=== PATIENT | male | born 1965 | race Caucasian/White ===

== ENCOUNTER → 2018-06-11 | Outpatient (CLI) | payer BC ==
--- NOTE | 2018-06-11 07:41 | US ---
EXAMINATION TYPE: US kidneys/renal and bladder DATE OF EXAM: 06/11/2018 COMPARISON: CT from 2011 CLINICAL HISTORY: N17.9 Acute injury of kidney. EXAM MEASUREMENTS: Right Kidney: 10.7 x 5.1 x 5.5 cm Left Kidney: 10.6 x 6.0 x 5.5 cm Technically difficult study due to patient body habitus and midline bowel gas. Right Kidney: Simple appearing cyst measures 1.4 x 1.1 x 1.4 cm Left Kidney: No hydronephrosis or masses seen Bladder: wnl Bilateral Jets seen: Yes No suspicious perinephric fluid collections are evident. Color-flow sonography demonstrates color lori w in the bilateral kidneys. IMPRESSION: Right renal cyst.
== END | disposition home or self-care (01) ==
LOC: RADUSWWP 06:58
PROVIDERS: ATTEND Nurse Practitioner Family
DX: N28.1 Cyst of kidney, acquired (principal); N17.9 Acute kidney failure, unspecified
CPT/HCPCS: 76770

== ENCOUNTER 2019-01-24 10:37 | Emergency (ER) | payer OTHER, BC ==
[2019-01-24 11:00] VITALS: BP 153/77; PULSE 82; RESP 16; TEMP 99
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
== END 2019-01-24 13:47 | disposition home or self-care (01) ==
LOC: EC 10:37
DX: M54.5 Low back pain (principal); M48.061 Spinal stenosis, lumbar region without neurogenic claudication; N20.0 Calculus of kidney; E11.9 Type 2 diabetes mellitus without complications; I10 Essential (primary) hypertension; Z79.84 Long term (current) use of oral hypoglycemic drugs; Z79.899 Other long term (current) drug therapy; V89.2XXA Person injured in unspecified motor-vehicle accident, traffic, initial encounter; Y92.410 Unspecified street and highway as the place of occurrence of the external cause
CPT/HCPCS: 72131; 99284

== ENCOUNTER → 2019-02-24 | Outpatient (CLI) | payer BC ==
--- NOTE | 2019-02-24 09:59 | XR ---
EXAMINATION TYPE: XR KUB DATE OF EXAM: 02/24/2019 9:10 AM CLINICAL HISTORY: Left-sided kidney stones. TECHNIQUE: Two supine KUB images of the abdomen are obtained. COMPARISON: Abdominal x-ray and CT June 14, 2012. CT lumbar spine January 24, 2019 FINDINGS: The 4 mm calculus on recent CT upper pole level left kidney is less well-seen likely still present on plain film at superior L2 level. Exam suboptimal due to body habitus and overlying fecal m aterial. Overall nonobstructive bowel gas pattern. Scattered pelvic phleboliths are noted. IMPRESSION: As above.
== END | disposition home or self-care (01) ==
LOC: RADXRMAIN 08:59
PROVIDERS: ATTEND Urology
DX: N20.0 Calculus of kidney (principal)
CPT/HCPCS: 74018

== ENCOUNTER → 2021-07-08 | Outpatient (CLI) | payer BC ==
--- NOTE | 2021-07-08 10:48 | US ---
EXAMINATION TYPE: US venous doppler duplex LE DATE OF EXAM: 07/08/2021 10:30 AM COMPARISON: NONE CLINICAL HISTORY: R60.0 LOCALIZED EDEMA. Bilateral foot swelling x 6 months SIDE PERFORMED: Bilateral TECHNIQUE: The lower extremity deep venous system is examined utilizing real time linear array sonog nestor with graded compression, doppler sonography and color-flow sonography. VESSELS IMAGED: Common Femoral Vein Deep Femoral Vein Greater Saphenous Vein * Femoral Vein Popliteal Vein Small Saphenous Vein * Proximal Calf Veins (* superficial vessels) Right Leg: Appears negative for DVT Left Leg: Appears negative for DVT Grayscale, color doppler, spectral doppler imaging performed of the deep veins of the bilateral lower extremities. There is normal flow, compressibility, vascular waveforms. IMPRESSION: No ultrasound evidence for acute DVT in either lower extremity.
== END ==
LOC: RADUSWWP 10:07
PROVIDERS: ATTEND Family Medicine
DX: R60.0 Localized edema (principal)
CPT/HCPCS: 93970

== ENCOUNTER 2022-01-08 08:02 | Emergency (ER) | payer BC, OTHER ==
[2022-01-08 08:12] VITALS: TEMP 97.6
--- NOTE | 2022-01-08 08:30 | ED ---
General Adult HPI - General Chief complaint: Shortness of Breath Stated complaint: SOB Time Seen by Provider: 01/08/22 08:20 Source: patient, RN notes reviewed, old records reviewed Mode of arrival: ambulatory Limitations: no limitations - History of Present Illness Initial comments: 56-year-old male presents to the emergency room with complaints of shortness of breath for 1 month with bilateral lower extremity swelling for 6 months. He states he does sleep with more than 2 pillows at night. Does have an occasional cough. Denies any fevers. History of diabetes and hypertension. He did see his primary care doctor a month ago and was told that he is prediabetic but does have a normal A1c at this time. -: month(s) (1) Severity scale (1-10): 0 Consistency: constant Improves with: none Worsens with: other (exertion) Associated Symptoms: chest pain, cough, shortness of breath, other (blle sw elling) Treatments Prior to Arrival: none - Related Data Home Medications Medication Instructions Recorded Confirmed lisinopriL 40 mg PO DAILY 01/24/19 01/08/22 Albuterol Inhaler [Ventolin Hfa 2 puff INHALATION RT-Q6H PRN 01/08/22 01/08/22 Inhaler] Ergocalciferol [Vitamin D2 (1250 1,250 mcg PO WE 01/08/22 01/08/22 Mcg = 12913 Iu)] Fluticasone Nasal [place] [Flonase 1 spray EA NOSTRIL BID 01/08/22 01/08/22 Nasal [place]] guaiFENesin [Mucinex] 600 mg PO Q12H PRN 01/08/22 01/08/22 metOLazone [Zaroxolyn] 5 mg PO DAILY PRN 01/08/22 01/08/22 Allergies Allergy/AdvReac Type Severity Reaction Status Date / Time No Known Allergies Allergy Verified 01/08/22 10:38 Review of Systems ROS Statement: Those systems with pertinent positive or pertinent negative responses have been documented in the HPI. ROS Other: All systems not noted in ROS Statement are negative. Past Medical History Past Medical History: Diabetes Mellitus, Hypertension History of Any Multi-Drug Resistant Organisms: None Reported Past Surgical History: No Surgical Hx Reported Past Psychological History: No Psychological Hx Reported Smoking Status: Never smoker Past Alcohol Use History: Rare Past Drug Use History: None Reported General Exam Limitations: no limitations General appearance: alert, in no apparent distress Head exam: Present: atraumatic, normocephalic Eye exam: Present: normal appearance. Absent: scleral icterus, conjunctival injection, periorbital swelling, periorbital tenderness ENT exam: Present: normal exam, normal oropharynx, mucous membranes moist Neck exam: Present: normal inspection, full ROM. Absent: tenderness, meningismus, lymphadenopathy Respiratory exam: Present: normal lung sounds bilaterally. Absent: respiratory distress, accessory muscle use Cardiovascular Exam: Present: regular rate, normal rhythm GI/Abdominal exam: Present: soft. Absent: tenderness Extremities exam: Present: normal capillary refill, other (Bilateral lower extremity swelling, nonpitting, hyperpigmentation). Absent: tenderness, calf tenderness Back exam: Present: normal inspection. Absent: tenderness, CVA tenderness (R), CVA tenderness (L), rash noted Neurological exam: Present: alert, oriented X3, normal gait Psychiatric exam: Present: normal affect, normal mood Skin exam: Present: warm, dry. Absent: cyanosis, diaphoretic, petechiae, pallor Course Vital Signs 01/08/22 01/08/22 01/08/22 08:06 08:43 08:45 Temperature 97.6 F Pulse Rate 91 76 Respiratory 24 22 18 Rate Blood Pressure 154/92 O2 Sat by Pulse 90 L 96 Oximetry 01/08/22 01/08/22 01/08/22 10:26 10:28 11:24 Temperature Pulse Rate 85 81 Respiratory 18 18 Rate Blood Pressure 157/90 138/88 O2 Sat by Pulse 85 L 95 96 Oximetry Medical Decision Making - Medical Decision Making Patient states leg swelling has been ongoing for over 6 months. He has been prescribed a CPAP machine for sleep apnea which he states has difficulty using as he tosses and turns throughout the night. Chest x-ray is negative for any acute pulmonary disease. No evidence of infiltrate or atelectasis. Troponin is 0.033. BUN 29, creatinine 1.70, there are no old labs to compare. Patient states that his doctor did tell him his kidney function is elevated and is likely related to his hypertension. He did last see Dr. Campos 2 months ago. BNP 598, EKG shows sinus rhythm with no ST elevation. Case discussed with Dr. Ayala. Due to the chronicity of the patient's complaints and no acute findings, patient will be discharged home to follow up with his primary care doctor. I did direct him to discuss his elevated BUN and creatinine levels in addition to sleep apnea with his doctor. He is agreeable to this plan and care. Vital signs are stable at discharge. Case discussed with Dr. Ayala. - Lab Data Result diagrams: 01/08/22 08:35 01/08/22 08:35 Lab Results 01/08/22 01/08/22 01/08/22 Range/Units 08:18 08:35 08:35 WBC 7.8 (3.8-10.6) k/uL RBC 5.23 (4.30-5.90) m/uL Hgb 16.0 (13.0-17.5) gm/dL Hct 51.0 (39.0-53.0) % MCV 97.6 (80.0-100.0) fL MCH 30.7 (25.0-35.0) pg MCHC 31.4 (31.0-37.0) g/dL RDW 16.2 H (11.5-15.5) % Plt Count 216 (150-450) k/uL MPV 8.0 Neutrophils % 75 % Lymphocytes % 15 % Monocytes % 6 % Eosinophils % 2 % Basophils % 0 % Neutrophils # 5.8 (1.3-7.7) k/uL Lymphocytes # 1.1 (1.0-4.8) k/uL Monocytes # 0.4 (0-1.0) k/uL Eosinophils # 0.2 (0-0.7) k/uL Basophils # 0.0 (0-0.2) k/uL Hypochromasia Moderate Anisocytosis Slight Macrocytosis Slight PT 10.0 (9.0-12.0) sec INR 0.9 (<1.2) APTT 23.9 (22.0-30.0) sec Sodium (137-145) mmol/L Potassium (3.5-5.1) mmol/L Chloride (98-107) mmol/L Carbon Dioxide (22-30) mmol/L Anion Gap mmol/L BUN (9-20) mg/dL Creatinine (0.66-1.25) mg/dL Est GFR (CKD-EPI)AfAm (>60 ml/min/1.73 sqM) Est GFR (CKD-EPI)NonAf (>60 ml/min/1.73 sqM) Glucose (74-99) mg/dL Plasma Lactic Acid Tani (0.7-2.0) mmol/L Calcium (8.4-10.2) mg/dL Magnesium (1.6-2.3) mg/dL Total Bilirubin (0.2-1.3) mg/dL AST (17-59) U/L ALT (4-49) U/L Alkaline Phosphatase (38-126) U/L Troponin I (0.000-0.034) ng/mL NT-Pro-B Natriuret Pep 598 pg/mL Total Protein (6.3-8.2) g/dL Albumin (3.5-5.0) g/dL 01/08/22 01/08/22 01/08/22 Range/Units 08:35 08:35 08:35 WBC (3.8-10.6) k/uL RBC (4.30-5.90) m/uL Hgb (13.0-17.5) gm/dL Hct (39.0-53.0) % MCV (80.0-100.0) fL MCH (25.0-35.0) pg MCHC (31.0-37.0) g/dL RDW (11.5-15.5) % Plt Count (150-450) k/uL MPV Neutrophils % % Lymphocytes % % Monocytes % % Eosinophils % % Basophils % % Neutrophils # (1.3-7.7) k/uL Lymphocytes # (1.0-4.8) k/uL Monocytes # (0-1.0) k/uL Eosinophils # (0-0.7) k/uL Basophils # (0-0.2) k/uL Hypochromasia Anisocytosis Macrocytosis PT (9.0-12.0) sec INR (<1.2) APTT (22.0-30.0) sec Sodium 139 (137-145) mmol/L Potassium 4.5 (3.5-5.1) mmol/L Chloride 101 (98-107) mmol/L Carbon Dioxide 33 H (22-30) mmol/L Anion Gap 5 mmol/L BUN 29 H (9-20) mg/dL Creatinine 1.70 H (0.66-1.25) mg/dL Est GFR (CKD-EPI)AfAm 52 (>60 ml/min/1.73 sqM) Est GFR (CKD-EPI)NonAf 45 (>60 ml/min/1.73 sqM) Glucose 140 H (74-99) mg/dL Plasma Lactic Acid Tani 1.2 (0.7-2.0) mmol/L Calcium 9.0 (8.4-10.2) mg/dL Magnesium 1.7 (1.6-2.3) mg/dL Total Bilirubin 0.8 (0.2-1.3) mg/dL AST 59 (17-59) U/L ALT 53 H (4-49) U/L Alkaline Phosphatase 67 (38-126) U/L Troponin I 0.033 (0.000-0.034) ng/mL NT-Pro-B Natriuret Pep pg/mL Total Protein 6.7 (6.3-8.2) g/dL Albumin 3.7 (3.5-5.0) g/dL Disposition Clinical Impression: Shortness of breath, Sleep apnea, Elevated serum creatinine Disposition: HOME SELF-CARE Condition: Good Instructions (If sedation given, give patient instructions): Shortness of Breath (ED) Additional Instructions: Follow-up with the primary care doctor this week. Discuss with him your elevated kidney function tests in addition to your continued shortness of breath. Wear your CPAP machine for sleep apnea. If you are having trouble tolerating your CPAP please discuss this with the primary care doctor as well. Return to the emergency room with any new or concerning symptoms including chest pain or worsening difficulty in breathing. Is patient prescribed a controlled substance at d/c from ED?: No Referrals: None,Stated [Primary Care Provider] - 1-2 days Markie Abarca MD [REFERRING] - 1-2 days Time of Disposition: 10:52
[2022-01-08 08:46] VITALS: RESP 18
[2022-01-08 08:52] LABS: Anisocytosis Slight; Basophils % (A) 0 %; Eosinophils # (A) 0.2 k/uL (0-0.7); Eosinophils % (A) 2 %; Hypochromasia Moderate; Lymphocytes # (A) 1.1 k/uL (1.0-4.8); Lymphocytes % (A) 15 %; MCH 30.7 pg (25.0-35.0); MCHC 31.4 g/dL (31.0-37.0); MCV 97.6 fL (80.0-100.0); Macrocytosis Slight; Monocytes # (A) 0.4 k/uL (0-1.0); Monocytes % (A) 6 %; Neutrophils # (A) 5.8 k/uL (1.3-7.7); Neutrophils % (A) 75 %; Platelet Count 216 k/uL (150-450); RBC 5.23 m/uL (4.30-5.90); RDW 16.2 % (11.5-15.5); WBC 7.8 k/uL (3.8-10.6)
--- NOTE | 2022-01-08 08:58 | XR ---
EXAMINATION TYPE: XR chest 2V DATE OF EXAM: 01/08/2022 COMPARISON: NONE HISTORY: Shortness of breath TECHNIQUE: Frontal and lateral views of the chest are obtained. FINDINGS: Scattered senescent parenchymal changes noted. Hyperinflation compatible with COPD. No evidence for infiltrate. No evidence for atelectasis. Heart size is stable. Mediastinal structures are stable and grossly unremarkable. No evidence for hilar prominence. Degenerative changes dorsal spine. IMPRESSION: 1. No evidence for acute pulmonary disease.
[2022-01-08 09:00] LABS: INR 0.9 (<1.2); Partial Thromboplastin Time 23.9 sec (22.0-30.0)
[2022-01-08 09:10] LABS: Albumin 3.7 g/dL (3.5-5.0); Magnesium 1.7 mg/dL (1.6-2.3); Potassium 4.5 mmol/L (3.5-5.1); Total Bilirubin 0.8 mg/dL (0.2-1.3); Total Protein 6.7 g/dL (6.3-8.2)
[2022-01-08 11:26] VITALS: BP 138/88; PULSE 81
== END 2022-01-08 11:37 | disposition home or self-care (01) ==
LOC: EC 08:02
DX: G47.30 Sleep apnea, unspecified (principal); R06.02 Shortness of breath; R79.89 Other specified abnormal findings of blood chemistry; E11.9 Type 2 diabetes mellitus without complications; I10 Essential (primary) hypertension; Z79.899 Other long term (current) drug therapy
CPT/HCPCS: 36415; 71046; 80053; 83605; 83735; 83880; 84484; 85025; 85610; 85730; 93005; 99285

== ENCOUNTER 2022-01-20 17:15 | Emergency (ER) | payer OTHER ==
[2022-01-20 17:28] VITALS: BP 141/75; PULSE 91; RESP 20; TEMP 97.8
[2022-01-20] MEDS ORDERED: HYDROmorphone 1 MG/ML 1 ML SYRINGE IM STA (17:40)
--- NOTE | 2022-01-20 17:49 | ED ---
Extremity Problem HPI - General Chief complaint: Extremity Problem,Nontraumatic Stated complaint: Lt knee pain Time Seen by Provider: 01/20/22 17:31 Source: patient Mode of arrival: ambulatory Limitations: no limitations - History of Present Illness Initial comments: Patient is a 56-year-old male with a past medical history significant for hypertension and diabetes who presents to the emergency department for evaluation of left knee pain. Patient states the pain started yesterday afternoon above his knee. Patient states it is severe and he noticed redness and swelling today. He does not recall any cuts, bites, or injury to the left knee recently. He does not have pain behind the knee or in the knee joint. Patient denies personal and family history of DVT, PE, cellulitis, and MRSA. Denies blood thinner use. 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 Denies chest pain, shortness of breath, and other concerns. MD Complaint: extremity pain - Related Data Home Medications Medication Instructions Recorded Confirmed lisinopriL 40 mg PO DAILY 01/24/19 01/20/22 Albuterol Inhaler [Ventolin Hfa 2 puff INHALATION RT-Q6H PRN 01/08/22 01/20/22 Inhaler] Ergocalciferol [Vitamin D2 (1250 1,250 mcg PO WE 01/08/22 01/20/22 Mcg = 01483 Iu)] Fluticasone Nasal [place] [Flonase 1 spray EA NOSTRIL BID 01/08/22 01/20/22 Nasal [place]] guaiFENesin [Mucinex] 600 mg PO Q12H PRN 01/08/22 01/20/22 metOLazone [Zaroxolyn] 5 mg PO DAILY PRN 01/08/22 01/20/22 Previous Rx's Medication Instructions Recorded Cephalexin [Keflex] 500 mg PO Q6HR 5 Days #20 cap 01/20/22 HYDROcodone/APAP 10-325MG [[place] 1 tab PO Q4HR PRN 3 Days #18 tab 01/20/22 10-325] Sulfamethox-Tmp 800-160Mg [Bactrim 1 tab PO Q12HR 5 Days #10 tab 01/20/22 DS 800-160 mg] Allergies Allergy/AdvReac Type Severity Reaction Status Date / Time No Known Allergies Allergy Verified 01/20/22 18:32 Review of Systems ROS Statement: Those systems with pertinent positive or pertinent negative responses have been documented in the HPI. ROS Other: All systems not noted in ROS Statement are negative. Past Medical History Past Medical History: Diabetes Mellitus, Hypertension History of Any Multi-Drug Resistant Organisms: None Reported Past Surgical History: No Surgical Hx Reported Past Psychological History: No Psychological Hx Reported Smoking Status: Never smoker Past Alcohol Use History: Rare Past Drug Use History: None Reported General Exam Limitations: no limitations General appearance: alert, in no apparent distress Head exam: Present: atraumatic, normocephalic, normal inspection Eye exam: Present: normal appearance, PERRL, EOMI. Absent: scleral icterus, conjunctival injection, periorbital swelling Respiratory exam: Present: normal lung sounds bilaterally. Absent: respiratory distress, wheezes, rales, rhonchi, stridor Cardiovascular Exam: Present: regular rate, normal rhythm, normal heart sounds. Absent: systolic murmur, diastolic murmur, rubs, gallop, clicks Left Upper Leg exam: Present: normal inspection, full ROM. Absent: tenderness, swelling Knee exam: Present: full ROM. Absent: normal inspection (erythema, swelling, and warmth just above the knee medially. mild flunctuance/induration. very tender to palpation ), abrasion, laceration, ecchymosis, deformity Lower Leg exam: Present: normal inspection, full ROM. Absent: tenderness, swelling, abrasion, Homans' sign Course Vital Signs 01/20/22 17:23 Temperature 97.8 F Pulse Rate 91 Respiratory 20 Rate Blood Pressure 141/75 O2 Sat by Pulse 93 L Oximetry Medical Decision Making - Medical Decision Making This is a 56-year-old male who presents for evaluation of knee pain. Thorough history and examination were performed. Patient is afebrile. There is erythema, swelling, and warmth just above the knee medially with mild flunctuance/induration. It is very tender to palpation. There is no erythema, swelling, or pain in the knee itself to suggest a septic joint. No calf tenderness. Negative Homans sign. No chest pain or shortness of breath. Venous Doppler of the left lower extremity obtained which was negative for DVT. Extremity ultrasound showed suspicion for abscess. The region was cleaned thoroughly with Betadine. Incision and drainage was performed. It was then packed. Wound culture pending. Patient tolerated the procedure well without complication. He will be discharged with Keflex and Bactrim. This is given in the emergency department. Patient to follow-up with his primary care provider in one to 2 days. Return parameters discussed. Patient verbalizes underst anding and is agreeable to this plan. Dr. Judd is my attending. Disposition Clinical Impression: Cellulitis Disposition: HOME SELF-CARE Condition: Good Instructions (If sedation given, give patient instructions): Cellulitis (ED) Additional Instructions: Keep wound clean and dry. You may wash with a mild soap. Keep the wound uncovered. Take antibiotics and [place] as directed. Follow-up with primary care provider to further evaluate the infection and your symptoms. Return to the emergency department if you experience new, concerning, or worsening symptoms.. Prescriptions: Sulfamethox-Tmp 800-160Mg [Bactrim DS 800-160 mg] 1 tab PO Q12HR 5 Days #10 tab Cephalexin [Keflex] 500 mg PO Q6HR 5 Days #20 cap HYDROcodone/APAP 10-325MG [[place] 10-325] 1 tab PO Q4HR PRN 3 Days #18 tab PRN Reason: Pain Is patient prescribed a controlled substance at d/c from ED?: No Referrals: Markie Abarca MD [Primary Care Provider] - 1-2 days Time of Disposition: 18:57
--- NOTE | 2022-01-20 18:34 | US ---
EXAMINATION TYPE: US venous doppler duplex LE LT DATE OF EXAM: 01/20/2022 6:08 PM COMPARISON: us CLINICAL HISTORY: rule out DVT vs. abscess. Left knee pain SIDE PERFORMED: Left TECHNIQUE: The lower extremity deep venous system is examined utilizing real time linear array sonog nestor with graded compression, doppler sonography and color-flow sonography. VESSELS IMAGED: Common Femoral Vein Deep Femoral Vein Greater Saphenous Vein * Femoral Vein Popliteal Vein Small Saphenous Vein * Proximal Calf Veins (* superficial vessels) Left Leg: Negative for DVT IMPRESSION: No evidence of deep vein thrombosis in the left leg.
--- NOTE | 2022-01-20 18:35 | US ---
EXAMINATION TYPE: US extremity nonvasculr ltd LT DATE OF EXAM: 01/20/2022 COMPARISON: NONE CLINICAL HISTORY: ABSCESS LEFT KNEE. Pt states left anterior knee pain, redness and swelling Complex fluid collection left anterior knee in area of pain, redness, and swelling= 4.5 x 0.8 x 5.2 cm, approx 1 cm under skin line IMPRESSION: There is subcutaneous complex fluid collection at the anterior knee and the appearance is nonspecific. This could be abscess or hematoma.
[2022-01-20] MEDS ORDERED: LIDOCAINE 1% INJ 10MG/ML (5 ML VIAL-PF) SQ ONE (18:51)
[2022-01-20] MEDS ORDERED: CEPHALEXIN 500 MG CAP PO STA (18:54)
[2022-01-20] MEDS ORDERED: SULFAMETHOX-TMP 800-160MG 1 EACH TAB PO STA (18:55)
[2022-01-20] MEDS ORDERED: ACET/COD 300 MG/30 MG STARTER PACK 6 TAB BTL PO STA (20:53)
== END 2022-01-20 21:00 | disposition home or self-care (01) ==
LOC: EC 17:15
DX: L03.116 Cellulitis of left lower limb (principal); E11.9 Type 2 diabetes mellitus without complications; I10 Essential (primary) hypertension; Z79.899 Other long term (current) drug therapy
CPT/HCPCS: 93971; 76882; 10061; 99283; 96372; J2001; J1170

== ENCOUNTER → 2022-03-17 | Outpatient (CLI) | payer OTHER ==
--- NOTE | 2022-03-18 09:56 | CA ---
Transthoracic Echo Report Name: Naman Eastman Age: 56 Gender: M : 1965 Exam Date: 03/17/2022 15:01 Exam Location: [facility] Ht (in): 67 Wt (lb): 250 Ordering Physician: Dean Taylor MD Attending/Referring Phys: Alaina Su PAC [employer] Listing Consultant Key Subramanian RDCS Procedure CPT: Indications: R06.00 Dyspnea Cardiac Hx: Technical Quality: Fair Contrast 1: Total Dose (mL): Contrast 2: Total Dose (mL): MEASUREMENTS (Male / Female) Normal Values 2D ECHO LV Diastolic Diameter PLAX 4.1 cm 4.2 - 5.9 / 3.9 - 5.3 cm LV Systolic Diameter PLAX 3.2 cm IVS Diastolic Thickness 1.4 cm 0.6 - 1.0 / 0.6 - 0.9 cm LVPW Diastolic Thickness 1.4 cm 0.6 - 1.0 / 0.6 - 0.9 cm LV Relative Wall Thickness 0.7 RV Internal Dim ED PLAX 4.2 cm LA Systolic Diameter LX 3.6 cm 3.0 - 4.0 / 2.7 - 3.8 cm M-MODE Aortic Root Diameter MM 2.8 cm LA Systolic Diameter MM 4.2 cm LA Ao Ratio MM 1.5 MV E Point Septal Separation 0.4 cm AV Cusp Separation MM 2.2 cm DOPPLER MV Area PHT 4.7 cm??? Mitral E Point Velocity 43.7 cm/s Mitral A Point Velocity 55.5 cm/s Mitral E to A Ratio 0.8 MV Deceleration Time 163.1 ms TR Peak Velocity 303.6 cm/s TR Peak Gradient 55.3 mmHg Right Ventricular Systolic Press 60.3 mmHg FINDINGS Left Ventricle Left ventricular ejection fraction is estimated at 55%. Moderately increased left ventricular wall thickness. Right Ventricle Moderate right ventricular dilatation. Mild right ventricular hypokinesis. Moderate pulmonary hypertension. Right Atrium Normal right atrial size. Left Atrium Normal left atrial size. Mitral Valve Structurally normal mitral valve. Mild mitral regurgitation. Aortic Valve Trileaflet aortic valve. Tricuspid Valve Structurally normal tricuspid valve. Mild tricuspid regurgitation. Pulmonic Valve Pericardium Normal pericardium. Aorta Normal size aortic root and proximal ascending aorta. CONCLUSIONS Moderate LVH Left ventricular EF 55% Outer RV dilation with mild right ventricular hypokinesis. RVSP 60 Mild mitral regurgitation Mild tricuspid regurgitation Previewed by: Dr. Zafar Shay DO (Electronically Signed) Final Date: 18 March 2022 09:55
== END | disposition home or self-care (01) ==
LOC: RADECHMAIN 14:50
PROVIDERS: ATTEND Family Medicine
DX: I08.1 Rheumatic disorders of both mitral and tricuspid valves (principal)
CPT/HCPCS: 93306

== ENCOUNTER → 2022-05-06 | Outpatient (CLI) | payer OTHER | LOC: CPPFTMAIN 13:52 | PROVIDERS: ATTEND Family Medicine | DX: R06.00 Dyspnea, unspecified (principal) | CPT/HCPCS: 94060; 94726; 94729 ==

== ENCOUNTER → 2023-01-28 | Outpatient (CLI) | payer OTHER ==
--- NOTE | 2023-01-28 22:33 | CT ---
EXAMINATION TYPE: CT lumbar spine wo con DATE OF EXAM: 01/28/2023 COMPARISON: 70 03/08/2019 HISTORY: Radiculopathy, Lumbar Region CT DLP: 1873.5 mGycm CONTRAST: None TECHNIQUE: CT of the lumbar spine is performed on a spiral scan at 3 mm thick sections. Reconstructed images are performed in the coronal and sagittal planes. FINDINGS: There is minimal disc bulging noted at L2-3 L3-4 with anterior thecal sac contact. No AP sp inal canal stenosis or neural foraminal stenosis is present. T12-L1: No focal disc herniation or significant disc bulge is evident. No spinal canal stenosis or neural foraminal stenosis is present. L1-L2: No focal disc herniation or significant disc bulge is evident. No spinal canal stenosis or n eural foraminal stenosis is present L2-L3: No focal disc herniation or significant disc bulge is evident. No spinal canal stenosis or n eural foraminal stenosis is present L3-L4: Broad-based disc bulge has mild anterior thecal sac compression. No AP spinal canal stenosis i s present. Neural foramen are patent. L4-L5: There is broad-based disc bulging which is greater into the right paracentral and right latera l directions. This has moderate anterior thecal sac compression. AP spinal canal stenosis is present. Facet hypertrophy is present with posterior lateral thecal sac contact. Moderate bilateral foraminal stenosis is present. L5-S1: No focal disc herniation or significant disc bulge is evident. No spinal canal stenosis or n eural foraminal stenosis is present Very subtle grade 1 spondylolisthesis of L4 anterior to L5 may be present. IMPRESSION: 1. Broad-based disc bulge L4-5 with right paracentral and right lateral moderate thecal sac contact a nd moderate foraminal stenosis. This is a change from comparison. Correlate with radicular symptoms. 2. Minimal disc bulging noted at L2-3, L3-4 without spinal canal stenosis.
== END | disposition home or self-care (01) ==
LOC: RADCTMAIN 12:23
PROVIDERS: ATTEND Family Medicine
DX: M51.16 Intervertebral disc disorders with radiculopathy, lumbar region (principal); M99.73 Connective tissue and disc stenosis of intervertebral foramina of lumbar region
CPT/HCPCS: 72131

== ENCOUNTER → 2023-03-12 | Outpatient (CLI) | payer OTHER ==
--- NOTE | 2023-03-12 09:12 | US ---
EXAMINATION TYPE: US arterial LE single level DATE OF EXAM: 03/12/2023 7:25 AM CLINICAL INDICATION: Male, 57 years old with history of I73.9 PHERIPHERAL VASCULAR; Pt states bilater al lower leg discoloration History of: Smoker: No Hypertension: Yes Diabetic: Yes Hyperlipidemia: No TIA/CVA: No Previous Vascular Surgery: No CAD: No ND: No Vascular Ulcers: No Claudication: No Gangrene: No Doppler Waveforms: Right: Multiphasic Left: Multiphasic Right Brachial Pressure: 155 Left Brachial Pressure: 154 Ankle-Brachial Indices: Right: 1.1 Left: 1.1 Toe Brachial Indices: Right: 0.9 Left: 0.9 IMPRESSION: Normal TRISTIAN and TBI indices.
== END | disposition home or self-care (01) ==
LOC: RADUSWWP 06:49
PROVIDERS: ATTEND Family Medicine
DX: E11.51 Type 2 diabetes mellitus with diabetic peripheral angiopathy without gangrene (principal); I10 Essential (primary) hypertension
CPT/HCPCS: 93922

== ENCOUNTER → 2023-04-28 | Outpatient (CLI) | payer OTHER ==
--- NOTE | 2023-04-28 16:33 | US ---
EXAMINATION TYPE: US venous doppler duplex LE LT DATE OF EXAM: 04/28/2023 4:25 PM COMPARISON: Bilateral lower extremities venous ultrasound 07/08/2021, left lower extremity venous ult rasound 01/20/2022 CLINICAL INDICATION: Male, 57 years old with history of [id number] PAIN IN LEFT LOWER LEG; pain SIDE PERFORMED: Left TECHNIQUE: The lower extremity deep venous system is examined utilizing real time linear array sonog nestor with graded compression, doppler sonography and color-flow sonography. VESSELS IMAGED: Common Femoral Vein Deep Femoral Vein Greater Saphenous Vein * Femoral Vein Popliteal Vein Small Saphenous Vein * Proximal Calf Veins (* superficial vessels) Grayscale, color doppler, spectral doppler imaging performed of the deep veins of the left lower extr emity. There is normal flow, compressibility, vascular waveforms. Left Leg: Negative for DVT IMPRESSION: No deep venous thrombosis of the left lower extremity.
== END | disposition home or self-care (01) ==
LOC: RADUSWWP 16:09
PROVIDERS: ATTEND Family Medicine
DX: M79.662 Pain in left lower leg (principal)

== ENCOUNTER → 2023-05-07 | Outpatient (CLI) | payer OTHER ==
--- NOTE | 2023-05-10 11:38 | CT ---
EXAMINATION TYPE: CT angio lower extremity BILAT DATE OF EXAM: 05/07/2023 COMPARISON: 09/08/2022 HISTORY: R/O blood clot in legs and evaluate blood flow. Pt states he has discoloration in his lower extremities. CT DLP: 1047.8 mGycm Automated exposure control for dose reduction was used. Contrast: 100 mL Isovue 370 Technique: Axial images 2 mm thick sections. Reconstructed images in coronal and sagittal plane. Thre e-D reconstructed images are performed technologist on a separate computer FINDINGS: Internal/external iliac arteries are patent. Common femoral arteries are patent. Profunda femoris and superficial femoral arteries are normal popliteal arteries are patent. Trifurcation vessels on the right are identified. There is loss of visualization of the trifurcation vessels within the proximal portions. Very short segments of anterior tibial artery identified bilate rally. Peroneal arteries extend into the proximal calf regions. Posterior tibial artery on the right extends into the proximal calf. Left posterior tibial artery is lost within the proximal portion. On source images the right peroneal artery can be identified to the mid calf region. Right posterior tibial artery is faintly visualized to just above the ankle. Left posterior tibial artery is not iden tified. Peritoneal artery on source images can be traced to the distal calf region IMPRESSION: 1. POOR VISUALIZATION OF TRIFURCATION VESSELS. RECONSTRUCTED IMAGES ONLY IDENTIFY THE PROXIMAL MOST P ORTIONS. SOURCE IMAGES ARE VERY FAINT AND EXTEND INTO THE MID TO DISTAL CALF. PLEASE SEE ABOVE DISCUS YARED. 2. MORE PROXIMAL FOCAL STENOSIS ABOVE THE POPLITEAL ARTERIES IS NOT EVIDENT.
== END | disposition home or self-care (01) ==
LOC: RADCTMAIN 13:48
PROVIDERS: ATTEND Family Medicine
DX: I73.9 Peripheral vascular disease, unspecified (principal); E11.9 Type 2 diabetes mellitus without complications
CPT/HCPCS: 73706; Q9967